=== PATIENT | male | born 1950 | race Caucasian/White ===

== ENCOUNTER 2018-11-12 05:43 | Day surgery (SDC) | payer MEDICARE ==
[~2018-11-12 05:43] MED LIST: ASPI-555 PO; LISI1TAB9 PO; PANT40TA PO
[2018-11-12] MEDS ORDERED: SODIUM CHLORIDE 0.9% 1000ML 1,000 ML IV ONE (05:45)
[2018-11-12] MEDS ORDERED: INDOMETHACIN 50 MG SUPP.RECT RC SCH (07:00)
[2018-11-12] MEDS ORDERED: FISH1CAP49 PO (07:01)
[2018-11-12] MEDS ORDERED: PROPOFOL 10 MG/ML 20ML VIAL IV ONE (07:04)
[2018-11-12] MEDS ORDERED: GLYCOPYRROLATE 0.2 MG/ML 5 ML VIAL ONE (07:04)
[2018-11-12] MEDS ORDERED: LIDOCAINE HCL-MPF 2% 5ML VIAL ONE (07:05)
[2018-11-12 07:26] VITALS: BP 136/73
[2018-11-12 07:31] VITALS: BP 120/78
[2018-11-12 07:36] VITALS: BP 158/83
[2018-11-12 07:41] VITALS: BP 152/77
== END 2018-11-12 08:00 | disposition home or self-care (01) ==
LOC: DAH 05:43 → ENDO 05:43
PROVIDERS: ATTEND Internal Medicine
DX: K22.2 Esophageal obstruction (principal); K31.89 Other diseases of stomach and duodenum; K29.50 Unspecified chronic gastritis without bleeding
CPT/HCPCS: 43239; 43248; 88305; 88312; 88342; 93005; A4606; J2704; J3490 ×2; J7030

== ENCOUNTER 2019-01-05 06:12 | Day surgery (SDC) | payer MEDICARE ==
[~2019-01-05] VITALS: Ht 170.2 cm; Wt 69.5 kg
[~2019-01-05 06:12] MED LIST changes: +FISH1CAP49 PO; +SODIUM CHLORIDE 0.9% 1000ML 1,000 ML IV ONE
[2019-01-05 07:11] VITALS: BP 117/64
[2019-01-05] MEDS ORDERED: PROPOFOL 10 MG/ML 20ML VIAL IV ONE ×2 (09:12)
[2019-01-05 09:25] VITALS: BP 123/70
[2019-01-05 09:30] VITALS: BP 136/78
[2019-01-05 09:35] VITALS: BP 127/63
[2019-01-05 09:40] VITALS: BP 122/63
[2019-01-05 09:45] VITALS: BP 124/63
== END 2019-01-05 09:50 | disposition home or self-care (01) ==
LOC: ENDO 06:12 → DAH 06:15 → ENDO 09:50
PROVIDERS: ATTEND Internal Medicine
DX: K22.2 Esophageal obstruction (principal); K31.89 Other diseases of stomach and duodenum; E78.5 Hyperlipidemia, unspecified; I10 Essential (primary) hypertension; J44.9 Chronic obstructive pulmonary disease, unspecified; B96.81 Helicobacter pylori [H. pylori] as the cause of diseases classified elsewhere; K21.9 Gastro-esophageal reflux disease without esophagitis; Z98.890 Other specified postprocedural states; Z79.899 Other long term (current) drug therapy; Z80.0 Family history of malignant neoplasm of digestive organs; Z87.891 Personal history of nicotine dependence
CPT/HCPCS: 43235; 43453; 93005; A4606; J2704 ×2; J7030

== ENCOUNTER 2019-10-11 05:57 | Day surgery (SDC) | payer MEDICARE ==
[~2019-10-11] VITALS: Ht 170.2 cm; Wt 66.2 kg
[~2019-10-11 05:57] MED LIST changes: +ALBU8.5H8 IH; +FAMO40TA7 PO; +FENO145T37 PO; +LISI1TAB32 PO; -LISI1TAB9 PO; +LISI2.5T2 PO; +OMEP40CA13 PO; -SODIUM CHLORIDE 0.9% 1000ML 1,000 ML IV ONE; +UMEC1DIS IH
[2019-10-11] MEDS ORDERED: SODIUM CHLORIDE 0.9% 1000ML 1,000 ML IV ONE (06:02)
[2019-10-11 06:33] VITALS: BP 132/74
[2019-10-11] MEDS ORDERED: LIDOCAINE HCL 1% 20 ML VIAL ONE (06:54)
[2019-10-11] MEDS ORDERED: PROPOFOL 10 MG/ML 20ML VIAL IV ONE (06:54)
[2019-10-11] MEDS ORDERED: GLYCOPYRROLATE 0.2 MG/ML 5 ML VIAL ONE (06:56)
[2019-10-11 07:42] VITALS: BP 105/49
[2019-10-11 07:47] VITALS: BP 117/60
[2019-10-11 07:53] VITALS: BP 112/65
[2019-10-11 08:00] VITALS: BP 115/67
== END 2019-10-11 08:09 | disposition home or self-care (01) ==
LOC: DAH 05:57 → ENDO 05:57
PROVIDERS: ATTEND Internal Medicine
DX: Z12.11 Encounter for screening for malignant neoplasm of colon (principal); K63.5 Polyp of colon; K57.30 Diverticulosis of large intestine without perforation or abscess without bleeding; E78.5 Hyperlipidemia, unspecified; I10 Essential (primary) hypertension; J44.9 Chronic obstructive pulmonary disease, unspecified; K21.9 Gastro-esophageal reflux disease without esophagitis; F17.210 Nicotine dependence, cigarettes, uncomplicated; Z86.010 Personal history of colon polyps; Z79.899 Other long term (current) drug therapy; Z98.890 Other specified postprocedural states; Z72.89 Other problems related to lifestyle; Z82.49 Family history of ischemic heart disease and other diseases of the circulatory system; Z83.3 Family history of diabetes mellitus
CPT/HCPCS: 45380; 88305; A4215; A4221; A4222; A4223; A4606; A4615; A4663; J2704; J3490; J7030